=== PATIENT | female | born 1940 | race Caucasian/White ===

== ENCOUNTER 2016-12-02 10:27 | Day surgery (SDC) | payer MEDICARE, BC ==
--- NOTE | 2016-12-02 10:55 | NUR ---
1045-PATIENT STATES MY BACK IS NOT HURTING TODAY AND NO SPASMS. I THINK I WILL CANCEL.
== END 2016-12-02 10:50 | disposition home or self-care (01) ==
LOC: D.OPS 10:27
DX: M54.9 Dorsalgia, unspecified (principal); Z01.810 Encounter for preprocedural cardiovascular examination; Z01.812 Encounter for preprocedural laboratory examination; Z01.811 Encounter for preprocedural respiratory examination; Z53.9 Procedure and treatment not carried out, unspecified reason